=== PATIENT | female | born 1990 | race Caucasian/White ===

== ENCOUNTER 2019-01-25 09:17 | Day surgery (SDC) | payer BC ==
[2019-01-25] MEDS ORDERED: PROPOFOL 20 ML (11:24)
[2019-01-25] MEDS ORDERED: FENTAnyl 50 MCG/ML VIAL (11:24)
[2019-01-25] MEDS ORDERED: ONDANSETRON 4 MG INJ IV (11:30)
[2019-01-25] MEDS ORDERED: ALBUTEROL 0.083% (NEB) 2.5 MG/3 ML AMP HHN (11:30)
[2019-01-25] MEDS ORDERED: ACETAMINOPHEN 500 MG TAB PO (11:30)
[2019-01-25] MEDS ORDERED: FENTAnyl 50 MCG/ML VIAL IV (11:30)
== END 2019-01-25 12:52 | disposition home or self-care (01) ==
LOC: GIL 09:17
DX: K44.9 Diaphragmatic hernia without obstruction or gangrene (principal); K29.50 Unspecified chronic gastritis without bleeding; Z98.84 Bariatric surgery status
CPT/HCPCS: 43239; 88305; 88312